=== PATIENT | male | born 1970 | race Caucasian/White ===

== ENCOUNTER 2024-03-24 16:54 | Emergency (ER) | payer SELFPAY ==
[2024-03-24 16:57] VITALS: BP 156/91; PULSE 82; RESP 18; TEMP 36.6; O2SAT 99; BMI 31.9
--- NOTE | 2024-03-24 17:04 | EX.ED.GENINJ ---
HPI History of Present Illness Chief Complaint: Laceration Informant: patient and spouse/S.O. Narrative Narrative: Qwuds-[id number] male tablesaw injury left index finger prior to arrival. Board slipped with left finger went into the saw. No anticoagulants. Bleeding controlled with pressure. Tetanus unknown. No anticoagulants. Tetanus Immunization: Unknown Prior similar symptoms: No PFSH PFSH Home Medications ?Medication ?Instructions ?Recorded ?Last Taken ?Type cephalexin 500 mg capsule 500 mg PO Q12 #14 CAPSULES 03/24/24 Unknown Rx fluoxetine 40 mg capsule 40 mg PO DAILY 03/24/24 Unknown History hydrocodone-acetaminophen 5-325mg 1 tab PO Q6H PRN PRN Pain 3 days 03/24/24 Unknown Rx 5mg-325mg #12 TABLETS metformin 500 mg tablet 500 mg PO BID 03/24/24 Unknown History metformin 500 mg tablet,extended 1,000 mg PO DAILY 03/24/24 Unknown History release 24 hr Allergy/AdvReac Type Severity Reaction Status Date / Time petrolatum,white (From AdvReac Rash Verified 03/24/24 16:56 Petroleum Jelly) Social History Smoking Status: Former smoker ROS ROS ED Constitutional Constitutional ED: Denies chills, fever(s) or sweats Cardiovascular Cardiovascular: Denies chest pain Respiratory/Chest Respiratory/Chest: Denies cough Gastrointestinal Gastrointestinal: Denies abdominal pain, nausea or vomiting Musculoskeletal Musculoskeletal: Reports extremity pain Integumentary Reports wounds EXAM Physical Exam Const Vital Signs: 03/24/24 16:57 03/24/24 18:55 Temperature 97.8 F Temperature Source Oral Pulse Rate 82 78 Respiratory Rate 18 18 Blood Pressure 156/91 H Blood Pressure Mean 112 Pulse Ox 99 98 Oxygen Delivery Method Room Air Positive well nourished and well developed General Appearance ED: well developed and NAD HEENT Reports moist mucous membranes normocephalic and atraumatic Eyes General Eye ED: Yes normal appearance of both eyes Neck no lymphadenopathy and supple General: Negative for tenderness Chest Wall Chest: Negative for tenderness Resp normal respiratory effort and normal air movement Effort and Inspection: symmetric chest movement; Negative for respiratory distress Cardio regular rate, regular rhythm and no murmurs Peripheral Pulses: pulses 2+ throughout GI normal to inspection, nondistended, normoactive bowel sounds and non-tender Palpation: Negative for guarding or rebound tenderness present Back/Spine no CVA tenderness and no thoracic nor lumbar tenderness Extremity Extremity Narrative: Left hand: Index finger: Laceration across the volar aspect distal phalanx of index finger. No nailbed involvement. Appears to go deep, with white fibrous material. No joint involvement. Laceration length 3 cm. General Extremety ED: Negative for edema or tenderness General Extremity: Negative for edema Neuro oriented x3 and no sensory deficits noted Sensorium / Orientation: awake and alert Skin Skin Narrative: See above MDM MDM MDM Narrative Medical decision making narrative: Interventions / MDM: Differential diagnosis: Finger laceration Diagnosis considered but do not suspect: Open fracture x-ray negative. No clinical tendon injury. My EKG interpretation: N/A Imaging independently reviewed and interpreted by myself: Three-view x-ray left index finger: Soft tissue injury, no bony involvement also read by radiology. External documents reviewed: N/A Test considered but not ordered:N/A ED course: Tablesaw injury left index finger is isolated. Distal phalanx involvement away from tendons. Concerns for bony injury. Finger will be soaked, tetanus updated, IM Ancef given. X-ray left index finger ordered. X-ray with no bony involvement per radiology. Laceration repaired bedside with tourniquet evaluation, no bony injury seen. Laceration was repaired due to saw injury there was quarter inch spacing not full approximation could be achieved. Wound care discussed. Due to deep bone injury, he will continue on Keflex twice a day. He is given follow-up with plastics hand. He was provided AlumaFoam splint to help with immobilization and protection of the wound. Procedure note: Verbal consent. Normal sterile conditions. Initial Betadine mix with sterile water soak was performed. Flexor sheath block was performed using 1% lidocaine. He had additional pain on the distal ulnar aspect of the finger therefore additional local block was performed. A turnicot was placed. Normal saline flushes of the wound with no bony injury noted. The wound was approximated with a total of 4, 5-0 simple interrupted sutures. More loose approximation on the ulnar aspect of the wound due to nature of injury. Bacitracin dressing was placed by myself. Patient tolerated procedure well. Re-evaluation: stable Disposition discussed with patient/family/significant other: Patient and significant other Case discussed with consulting clinician: N/A This note was generated with Dragon dictation software. It may contain incorrect words, spelling, and punctuation that were not noted in checking the note before signing. Radiography Diagnostic Testing: Clinical Impression(s) from Imaging Studies Finger X-Ray 03/24/24 17:10 IMPRESSION: Fairly superficial soft tissue laceration. No foreign body or underlying bone abnormality. Electronically Signed: Cherelle Chung MD at 17:42 EST Reading Location ID and State: [facility] / [place] Tel , Service support , Discharge Plan Triage Chief Complaint: Laceration Other Complaint: Wound ED Provider: Joaquim Morgan Dx/Rx/DC Orders Clinical Impression: Laceration of left index finger, Tetanus toxoid vaccination administered at current visit Instructions: ED Laceration, All Closures Prescriptions: New hydrocodone-acetaminophen 5-325 mg tablet 1 tab PO Q6H PRN PRN (Reason: Pain) 3 Days Qty: 12 0RF cephalexin 500 mg capsule 500 mg PO Q12 Qty: 14 0RF No Action fluoxetine 40 mg capsule 40 mg PO DAILY metformin 500 mg tablet 500 mg PO BID metformin 500 mg tablet extended release 24 hr 1,000 mg PO DAILY Primary Care Provider: Lit Hopper Referrals: Lit Hopper MD [Primary Care Provider] - Refugio Louis MD [Med Staff - Active Staff] - 5-7 Days Activity Restrictions/Additional Instructions: Tablesaw injury no bony or tendon involvement. Deep laceration, take and finish antibiotic prescribed. Follow-up with Dr. Louis Print Language: [place] Disposition Disposition: Home, Self Care Discharge Date/Time: 03/24/24 19:00
--- NOTE | 2024-03-24 17:10 | RAD_ITS ---
EXAM: XR LEFT FINGERS, 3 VIEWS CLINICAL INDICATION: injury -- index finger TECHNIQUE: Frontal, lateral and oblique views of the fingers of the left hand. COMPARISON: No relevant prior studies available. FINDINGS: BONES/JOINTS: Unremarkable. No acute fracture. No subluxation. Normal alignment. Preservation of the joint space. No sclerotic or destructive changes observed. SOFT TISSUES: Shallow laceration of roughly 4 mm deep in the palmar surface of the index finger at the level of the mid aspect of the distal phalanx. No radiopaque foreign body. RAD/Finger(s) Min 2 Views IMPRESSION: Fairly superficial soft tissue laceration. No foreign body or underlying bone abnormality. Electronically Signed: Cherelle Chung MD at 17:42 EST ,
[2024-03-24] MEDS: Lidocaine 1% (20 ml mdv) 20 ML Vial INFILT (17:15)
[2024-03-24] MEDS: Diphth,Pertuss(Acell),Tet Vac 0.5 ML Vial IM (17:15)
[2024-03-24] MEDS: Cefazolin 1 GM/5 ML Vial IM (17:43)
[2024-03-24 18:55] VITALS: PULSE 78; RESP 18; O2SAT 98
== END 2024-03-24 19:00 | disposition home or self-care (01) ==
PROVIDERS: Emergency Provider Emergency Medicine; Visit Provider Emergency Medicine
DX: S61.211A Laceration without foreign body of left index finger without damage to nail, initial encounter (principal); Z87.891 Personal history of nicotine dependence; Z79.899 Other long term (current) drug therapy; Z79.84 Long term (current) use of oral hypoglycemic drugs; Z23 Encounter for immunization; W29.3XXA Contact with powered garden and outdoor hand tools and machinery, initial encounter
CPT/HCPCS: 12042; 73140; 90715; 96372; 99283